=== PATIENT | male | born 1990 | race Two or more races ===

== ENCOUNTER 2022-12-12 17:40 | Emergency (ER) | payer OTHER ==
[2022-12-12 17:53] VITALS: BP 135/81; PULSE 83; RESP 17; TEMP 97.9; BMI 28.1
[2022-12-12] MEDS ORDERED: DIPHTH,PERTUSS(ACELL),TET 0.5 ML DISP.SYRIN IM ONE (18:27)
[2022-12-12] MEDS ORDERED: ACETAMINOPHEN 500 MG TABLET (FP) PO ONE (18:27)
== END 2022-12-12 19:10 | disposition home or self-care (01) ==
LOC: JERFT 17:40
PROC: 3E0234Z Introduction of Serum, Toxoid and Vaccine into Muscle, Percutaneous Approach (ICD-10-PCS; principal; 2022-12-12)
DX: S50.811A Abrasion of right forearm, initial encounter (principal); M79.601 Pain in right arm; V18.0XXA Pedal cycle driver injured in noncollision transport accident in nontraffic accident, initial encounter
CPT/HCPCS: 73030-TC-RT-FY; 73060-TC-RT-FY; 73070-TC-RT-FY; 73090-TC-RT-FY; 90471; 90715; 99285-25